=== PATIENT | male | born 1950 | race Caucasian/White ===

== ENCOUNTER 2018-08-21 16:04 | Inpatient (IN) | payer OTHER ==
[~2018-08-21] VITALS: Ht 167.6 cm; Wt 105.3 kg
[~2018-08-21 16:04] MED LIST: ETOMIDATE 20 MG/10 ML ONE; ROCURONIUM 10 MG/ML,10ML ONE
[2018-08-21] MEDS ORDERED: DEXTROSE 50%, 50ML SYRINGE ONE (16:06)
[2018-08-21] MEDS ORDERED: PROPOFOL 100 ML IV PRN ×2 (16:12→20:26)
--- NOTE | 2018-08-21 16:21 | NUR ---
GALDINO MACEDO (SISTER/CAREGIVER) [phone]
[2018-08-21] MEDS ORDERED: PROPOFOL 100 ML IV ONE (16:29)
[2018-08-21] MEDS ORDERED: PIPERACILLIN/TAZO/PMX 4.5GM 100 ML IV ONE (16:30)
[2018-08-21] MEDS ORDERED: ETOMIDATE 20 MG/10 ML IV ONE (16:30)
[2018-08-21 16:43] LABS: BASOPHILS % (AUTO) 0 % (0-1); EOSINOPHILS # (AUTO) 0.02 x10^3/uL (0-0.4); EOSINOPHILS % (AUTO) 0 % (1-7); LYMPHOCYTES # (AUTO) 0.49 x10^3/uL (1-3.4); LYMPHOCYTES % (AUTO) 6 % (22-44); MD NO; MEAN CORPUSCULAR HEMOGLOBIN 31.8 pg (27.5-34.5); MEAN CORPUSCULAR HGB CONC 33.2 g/dL (33.2-36.2); MEAN CORPUSCULAR VOLUME 95.8 fL (81-97); MEAN PLATELET VOLUME 9.6 fL (7.4-10.4); MONOCYTES # (AUTO) 0.29 x10^3/uL (0.2-0.8); MONOCYTES % (AUTO) 3 % (2-9); NEUTROPHILS # (AUTO) 7.85 x10^3/uL (1.8-6.8); NEUTROPHILS % (AUTO) 91 % (42-75); PLATELET COUNT 119 x10^3/uL (130-400); RED BLOOD COUNT 4.88 x10^6/uL (4.38-5.82); RED CELL DISTRIBUTION WIDTH 15.5 % (9.4-14.8)
[2018-08-21 16:54] LABS: INTERNATIONAL NORMALIZED RATIO 1.04 (0.93-1.1)
[2018-08-21 16:55] LABS: ALANINE AMINOTRANSFERASE 33 U/L (12-78); ANION GAP 10 mmol/L (5-15); CALCIUM 7.9 mg/dL (8.5-10.1); CHLORIDE 114 mmol/L (98-107)
[2018-08-21 16:58] LABS: ALKALINE PHOSPHATASE 158 U/L (45-117); BILIRUBIN,TOTAL 0.4 mg/dL (0.2-1.0); CREATINE KINASE, TOTAL 487 U/L (39-308); CREATININE 2.75 mg/dL (0.7-1.3); TOTAL PROTEIN 7.8 g/dL (6.4-8.2); TROPONIN I < 0.015 ng/mL (0.000-0.045)
[2018-08-21 17:00] LABS: MICROSCOPIC AUTO
[2018-08-21] MEDS ORDERED: PLEASE ENTER ALLERGIES MC SCH (17:00)
[2018-08-21] MEDS ORDERED: [UNRECOGNIZED DRUG - REMARK] MC SCH (17:00)
[2018-08-21] MEDS ORDERED: DEXTROSE 50%, 50ML SYRINGE IVPush ONE (17:00)
[2018-08-21] MEDS ORDERED: VANCOMYCIN PER PHARMACY MC PRN ×2 (17:00→18:30)
--- NOTE | 2018-08-21 17:02 | NUR ---
PATIENT ARRIVED TO TRAUMA 54 BAGGED BY EMS. PATIENT WAS EMERGENTLY INTUBATED BY MD DELGADILLO WITH SEBAS AND ETOMIDATE AND 8.0 TUBE WITH RT PRESENT. PATIENT WAS FOUND TO HAVE VOMIT AND MUCOUS IN ORAL AIRWAY. PATIENT BS WAS RECEHCKED AND FOUND TO BE AT 65. 1/2 AMP D50 GIVEN AND RECHECK BS 84. CXR OBTAINED AND MD DELGADILLO REVIOEWED THIS IN ROOM. PATIENT WAS TAKEN TO CT AFTER LABS OBTAINED. UPON RETURNING TO ROOM, NG TUIBE PLACED (THIS WAS NOT PLACED INITIALLY DUE TO COMPLICATIONS PLACING TUBE - MD DELGADILLO AWARE AND HELPED WITH TROUBLE SHOOTING THIS BUT THE PATIENT NEEDED AN IMMEDIATE HEAD CT). PATIENT URINARY CATH PLACED. WARM BLANKETS APPLIED TO PATIENT.
[2018-08-21 17:04] LABS: FREE T4 (FREE THYROXINE) 0.89 ng/dL (0.76-1.46)
[2018-08-21 17:04] LABS: CULTURE INDICATED? YES
[2018-08-21 17:18] LABS: AMPHETAMINE SCREEN, URINE Negative (Negative)
--- NOTE | 2018-08-21 17:20 | NUR ---
PHARM MED REQUEST SENT TO PHARM
[2018-08-21 17:23] LABS: BARBITURATE SCREEN, URINE Negative (Negative); BENZODIAZEPINE SCREEN, URINE Negative (Negative); CANNABINOID SCREEN, URINE Negative (Negative); COCAINE SCREEN, URINE Negative (Negative); METHADONE SCREEN, URINE Negative (Negative); OPIATE SCREEN, URINE Negative (Negative)
[2018-08-21] MEDS ORDERED: ROCURONIUM 10 MG/ML,10ML IVPush ONE (17:30)
--- NOTE | 2018-08-21 17:34 | NUR ---
LAB AT FOR GAS DRAW
--- NOTE | 2018-08-21 17:47 | NUR ---
FSBS 88
--- NOTE | 2018-08-21 17:58 | NUR ---
MD DELGADILLO AT . PLAN TO CONTINUE WARMING PATIENT WITH WARM FLUIDS
--- NOTE | 2018-08-21 18:08 | NUR ---
WARM FLUIDS STARTED PER MD DELGADILLO
--- NOTE | 2018-08-21 18:08 | NUR ---
REPEAT EKG DONE.
[2018-08-21] MEDS ORDERED: D5%-0.45% NACL 1,000 ML IV SCH (18:24)
[2018-08-21] MEDS ORDERED: VANCOMYCIN 2,000 MG in SODIUM CHLORIDE 0.9% 500 ML IV ONE ×2 (18:30→21:30)
[2018-08-21] MEDS ORDERED: DEXTROSE 50%, 50ML SYRINGE IVPush PRN (18:30)
[2018-08-21] MEDS ORDERED: GLUCAGON 1 MG IM PRN (18:30)
[2018-08-21] MEDS ORDERED: NOREPINEPHRINE 4 MG in SODIUM CHLORIDE 0.9% 246 ML IV PRN (18:30)
[2018-08-21] MEDS ORDERED: ACETAMINOPHEN 325 MG TABLET PO PRN (18:30)
[2018-08-21] MEDS ORDERED: DEXTROSE 4 GM TAB.CHEW PO PRN (18:30)
--- NOTE | 2018-08-21 18:40 | NUR ---
MD EAGLE IN TO ASSESS PATIENT. ORDERS PLACE. RECHECK FS 117
--- NOTE | 2018-08-21 18:43 | NUR ---
GALDINO DREW , REPORTS SHE IS SISTER AND ROOMMATE OF PATIENT, CALLED [phone] OR CELL [phone]
[2018-08-21 18:49] VITALS: BP 98/58
[2018-08-21 18:53] LABS: TROPONIN I < 0.015 ng/mL (0.000-0.045)
[2018-08-21] MEDS ORDERED: SODIUM CHLORIDE 0.9% 1,000 ML IV SCH (19:00)
--- NOTE | 2018-08-21 19:18 | NUR ---
report to Iván ATWOOD
[2018-08-21] MEDS: SODIUM CHLORIDE 0.9% 1,000 ML IV SCH (19:43)
[2018-08-21] MEDS ORDERED: PHARMACY MAY ADJ FOR RENAL FX MC SCH (20:30)
[2018-08-21] MEDS ORDERED: LIDOCAINE-MPF 1%, 2ML ENDO PRN (20:30)
[2018-08-21] MEDS ORDERED: ALBUTEROL/IPRATROPIUM 2.5MG/0.5MG, 3 ML INLINE SCH (20:30)
[2018-08-21 21:11] LABS: RAPID INFLUENZA A Negative (Negative); RAPID INFLUENZA B Negative (Negative)
[2018-08-21 21:26] LABS: TROPONIN I < 0.015 ng/mL (0.000-0.045)
[2018-08-21] MEDS: FENTANYL PF 100 MCG/2ML IVPush PRN (21:51)
[2018-08-21] MEDS: PIPERACILLIN/TAZO/PMX 3.375GM 50 ML IV SCH (21:54)
[2018-08-21] MEDS: THIAMINE 200 MG, MVI ADULT 10 ML, FOLIC ACID 1 MG in D5%-0.9% NACL 1,000 ML IV SCH (21:55)
[2018-08-21] MEDS: SODIUM CHLORIDE FLUSH 10ML SYR IVF SCH (21:55)
[2018-08-21] MEDS ORDERED: SODIUM BICARB 8.4%, 50ML SYRINGE IVPush ONE (22:00)
[2018-08-21] MEDS: BUDESONIDE 0.5 MG/2 ML INHA INH SCH (22:40)
[2018-08-21] MEDS: FAMOTIDINE 20 MG/2 ML IVPush SCH (22:46)
[2018-08-21] MEDS: methylPREDNISolone SOD SUCC 125 MG/2 ML IVPush SCH (22:46)
[2018-08-21] MEDS: HEPARIN 5,000 UNITS/ML, 1ML SQ SCH (22:46)
[2018-08-22 00:56] LABS: TROPONIN I < 0.015 ng/mL (0.000-0.045)
[2018-08-22] MEDS: NYSTATIN CRM 15GM TP SCH ×3 (01:05→20:54)
[2018-08-22] MEDS: ALBUTEROL/IPRATROPIUM 2.5MG/0.5MG, 3 ML INLINE SCH ×6 (02:42→23:00)
[2018-08-22 02:53] LABS: BASOPHILS # (AUTO) 0.01 x10^3/uL (0-0.1); BASOPHILS % (AUTO) 0 % (0-1); EOSINOPHILS # (AUTO) 0.01 x10^3/uL (0-0.4); EOSINOPHILS % (AUTO) 0 % (1-7); LYMPHOCYTES # (AUTO) 0.22 x10^3/uL (1-3.4); LYMPHOCYTES % (AUTO) 4 % (22-44); MD SCAN; MEAN CORPUSCULAR HEMOGLOBIN 32.1 pg (27.5-34.5); MEAN CORPUSCULAR HGB CONC 33.6 g/dL (33.2-36.2); MEAN CORPUSCULAR VOLUME 95.6 fL (81-97); MEAN PLATELET VOLUME 9.9 fL (7.4-10.4); MONOCYTES # (AUTO) 0.24 x10^3/uL (0.2-0.8); MONOCYTES % (AUTO) 4 % (2-9); NEUTROPHILS # (AUTO) 5.84 x10^3/uL (1.8-6.8); NEUTROPHILS % (AUTO) 93 % (42-75); PLATELET COUNT 99 x10^3/uL (130-400); RED BLOOD COUNT 3.91 x10^6/uL (4.38-5.82); RED CELL DISTRIBUTION WIDTH 15.9 % (9.4-14.8)
[2018-08-22] MEDS: PIPERACILLIN/TAZO/PMX 3.375GM 50 ML IV SCH ×4 (02:56→20:36)
[2018-08-22] MEDS: methylPREDNISolone SOD SUCC 125 MG/2 ML IVPush SCH ×4 (03:00→20:54)
[2018-08-22 03:02] LABS: ALANINE AMINOTRANSFERASE 26 U/L (12-78); ALBUMIN 2.3 g/dL (3.4-5.0); ANION GAP 10 mmol/L (5-15); CALCIUM 7.3 mg/dL (8.5-10.1); CHLORIDE 119 mmol/L (98-107)
[2018-08-22 03:04] LABS: ALKALINE PHOSPHATASE 102 U/L (45-117); BILIRUBIN,TOTAL 0.5 mg/dL (0.2-1.0); TOTAL PROTEIN 6.2 g/dL (6.4-8.2)
[2018-08-22 03:09] LABS: TROPONIN I < 0.015 ng/mL (0.000-0.045)
[2018-08-22 03:12] LABS: HEMOGLOBIN A1C 10.8 % (4.2-6.3)
[2018-08-22] MEDS: BUDESONIDE 0.5 MG/2 ML INHA INH SCH ×2 (06:35→23:00)
[2018-08-22] MEDS: SODIUM CHLORIDE 0.9% 1,000 ML IV SCH (07:30)
[2018-08-22] MEDS ORDERED: MAGNESIUM SULFATE PMX 4GM/100M 100 ML IVPB ONE (07:30)
[2018-08-22] MEDS: HEPARIN 5,000 UNITS/ML, 1ML SQ SCH ×2 (08:19→14:56)
[2018-08-22] MEDS: FAMOTIDINE 20 MG/2 ML IVPush SCH ×2 (08:19→20:54)
[2018-08-22] MEDS: SODIUM CHLORIDE FLUSH 10ML SYR IVF SCH ×2 (08:19→20:36)
[2018-08-22] MEDS ORDERED: SODIUM CHLORIDE 0.9% 1,000ML IVBOLUS ONE (09:00)
[2018-08-22] MEDS ORDERED: SODIUM BICARBONATE 8.4% 150 MEQ in DEXTROSE 5% 1,000 ML IV SCH (09:00)
[2018-08-22] MEDS ORDERED: LABETALOL 5MG/ML, 20ML IVPush PRN (15:30)
[2018-08-22] MEDS: LABETALOL 20 MG/4 ML IVPush PRN ×2 (15:45→23:28)
[2018-08-22] MEDS: INSULIN LISPRO 100 UNITS/ML, PEN SQ-INSULIN SCH ×2 (16:41→20:49)
[2018-08-22] MEDS ORDERED: PREG50CA PO (17:30)
[2018-08-22] MEDS ORDERED: INSU100V8 SQ (17:30)
[2018-08-22] MEDS ORDERED: INSU100I18 SC (17:30)
[2018-08-22] MEDS ORDERED: DULO20CA17 PO (17:30)
[2018-08-22] MEDS ORDERED: LOSA100T7 PO (17:30)
[2018-08-22] MEDS ORDERED: NIFE60TA15 PO (17:30)
[2018-08-22] MEDS ORDERED: TRAM50TA2 PO (17:30)
[2018-08-22] MEDS ORDERED: CHOL-1 PO (17:30)
[2018-08-22] MEDS ORDERED: DORZ10DR27 OP (17:30)
[2018-08-22] MEDS ORDERED: ROSU20TA28 PO (17:30)
[2018-08-22] MEDS: SODIUM BICARBONATE 8.4% 150 MEQ in DEXTROSE 5% 1,000 ML IV SCH (20:35)
[2018-08-22] MEDS: FENTANYL PF 100 MCG/2ML IVPush PRN (20:59)
[2018-08-22] MEDS: THIAMINE 200 MG, MVI ADULT 10 ML, FOLIC ACID 1 MG in D5%-0.9% NACL 1,000 ML IV SCH (21:09)
[2018-08-23] MEDS: HEPARIN 5,000 UNITS/ML, 1ML SQ SCH ×3 (00:17→15:50)
[2018-08-23] MEDS: FENTANYL PF 100 MCG/2ML IVPush PRN (00:33)
[2018-08-23] MEDS: PROPOFOL 100 ML IV PRN ×5 (02:00→20:33)
[2018-08-23] MEDS: ALBUTEROL/IPRATROPIUM 2.5MG/0.5MG, 3 ML INLINE SCH ×6 (02:32→22:33)
[2018-08-23] MEDS: PIPERACILLIN/TAZO/PMX 3.375GM 50 ML IV SCH ×2 (02:51→08:56)
[2018-08-23] MEDS: hydrALAzine 20 MG/ML, 1ML IV PRN ×3 (02:52→20:11)
[2018-08-23] MEDS: methylPREDNISolone SOD SUCC 125 MG/2 ML IVPush SCH ×4 (02:52→20:33)
[2018-08-23 04:30] LABS: MEAN CORPUSCULAR VOLUME 94.3 fL (81-97); RED BLOOD COUNT 3.62 x10^6/uL (4.38-5.82); RED CELL DISTRIBUTION WIDTH 15.5 % (9.4-14.8)
[2018-08-23 04:40] LABS: ALANINE AMINOTRANSFERASE 20 U/L (12-78); ALBUMIN 2.3 g/dL (3.4-5.0); ANION GAP 10 mmol/L (5-15); CALCIUM 7.7 mg/dL (8.5-10.1); CHLORIDE 114 mmol/L (98-107)
[2018-08-23 04:42] LABS: ALKALINE PHOSPHATASE 78 U/L (45-117); BILIRUBIN,TOTAL 0.5 mg/dL (0.2-1.0); MD YES; TOTAL PROTEIN 6.5 g/dL (6.4-8.2)
[2018-08-23 04:43] LABS: MEAN PLATELET VOLUME 10.2 fL (7.4-10.4); PLATELET COUNT 97 x10^3/uL (130-400)
[2018-08-23 04:44] LABS: BAND#(MANUAL) 1.28 x10^3/uL; BANDS%(MANUAL) 16 % (0-7); LYMPH#(MANUAL) 0.48 x10^3/uL (1-3.4); LYMPHS% (MANUAL) 6 % (22-44); MONOS#(MANUAL) 0.32 x10^3/uL (0.3-2.7); MONOS% (MANUAL) 4 % (2-9); SEG#(MANUAL) 5.92 x10^3/uL (1.8-6.8); SEGS% (MANUAL) 74 % (42-75)
[2018-08-23 04:49] LABS: <PLATELET ESTIMATE> DECREASED; <PLT MORPHOLOGY> NORMAL PLT MORPH; ANISOCYTOSIS 1+
[2018-08-23] MEDS: INSULIN GLARGINE 100 UNITS/ML, PEN SQ-INSULIN SCH ×2 (05:25→18:43)
[2018-08-23] MEDS: FAMOTIDINE 20 MG/2 ML IVPush SCH (08:15)
[2018-08-23] MEDS: SODIUM CHLORIDE FLUSH 10ML SYR IVF SCH ×2 (08:18→20:16)
[2018-08-23] MEDS: AMLODIPINE 5 MG TABLET PO SCH (08:56)
[2018-08-23] MEDS: NYSTATIN CRM 15GM TP SCH ×2 (08:59→20:16)
[2018-08-23] MEDS ORDERED: MEROPENEM 1 GM in SODIUM CHLORIDE 0.9% 100 ML IV SCH ×2 (09:00→22:00)
[2018-08-23] MEDS ORDERED: AMLODIPINE 5 MG TABLET PO SCH (09:00)
[2018-08-23] MEDS: INSULIN LISPRO 100 UNITS/ML, PEN SQ-INSULIN SCH ×4 (09:05→20:14)
[2018-08-23] MEDS: BUDESONIDE 0.5 MG/2 ML INHA INH SCH ×2 (09:15→22:33)
--- NOTE | 2018-08-23 10:45 | NUR ---
TF GOAL: w/ propofol: VITAL HIGH PROTEIN @ 55ML/HR off propofol: VITAL HIGH PROTEIN @ 65ML/HR
[2018-08-23] MEDS: SODIUM BICARBONATE 8.4% 150 MEQ in DEXTROSE 5% 1,000 ML IV SCH (11:09)
[2018-08-23] MEDS: THIAMINE 200 MG, MVI ADULT 10 ML, FOLIC ACID 1 MG in D5%-0.9% NACL 1,000 ML IV SCH (20:33)
[2018-08-23 23:54] LABS: ANION GAP 11 mmol/L (5-15); CALCIUM 8.1 mg/dL (8.5-10.1); CHLORIDE 114 mmol/L (98-107); CREATININE 3.35 mg/dL (0.7-1.3)
[2018-08-24] MEDS: HEPARIN 5,000 UNITS/ML, 1ML SQ SCH ×3 (00:15→16:32)
[2018-08-24] MEDS: ALBUTEROL/IPRATROPIUM 2.5MG/0.5MG, 3 ML INLINE SCH ×6 (02:33→22:04)
[2018-08-24] MEDS: methylPREDNISolone SOD SUCC 125 MG/2 ML IVPush SCH ×4 (03:08→20:05)
[2018-08-24] MEDS: PROPOFOL 100 ML IV PRN (04:17)
[2018-08-24 04:51] LABS: ALANINE AMINOTRANSFERASE 20 U/L (12-78); ALBUMIN 2.3 g/dL (3.4-5.0); ANION GAP 8 mmol/L (5-15); CHLORIDE 113 mmol/L (98-107); CREATININE 3.37 mg/dL (0.7-1.3); TRIGLYCERIDES 210 mg/dL (50-200)
[2018-08-24 04:53] LABS: ALKALINE PHOSPHATASE 79 U/L (45-117); BILIRUBIN,TOTAL 0.8 mg/dL (0.2-1.0); TOTAL PROTEIN 6.4 g/dL (6.4-8.2)
[2018-08-24 05:10] LABS: CREATININE,URINE RANDOM 22.9 mg/dL
[2018-08-24 05:37] LABS: MEAN CORPUSCULAR HGB CONC 33.6 g/dL (33.2-36.2); MEAN PLATELET VOLUME 9.5 fL (7.4-10.4); PLATELET COUNT 95 x10^3/uL (130-400); RED BLOOD COUNT 3.86 x10^6/uL (4.38-5.82); RED CELL DISTRIBUTION WIDTH 15.7 % (9.4-14.8)
[2018-08-24 05:58] LABS: MD YES
[2018-08-24 06:01] LABS: <PLATELET ESTIMATE> DECREASED; <PLT MORPHOLOGY> NORMAL PLT MORPH; ANISOCYTOSIS 1+; BAND#(MANUAL) 1.39 x10^3/uL; BANDS%(MANUAL) 16 % (0-7); LYMPH#(MANUAL) 0.44 x10^3/uL (1-3.4); LYMPHS% (MANUAL) 5 % (22-44); MONOS#(MANUAL) 0.17 x10^3/uL (0.3-2.7); MONOS% (MANUAL) 2 % (2-9); SEGS% (MANUAL) 77 % (42-75)
[2018-08-24] MEDS: INSULIN GLARGINE 100 UNITS/ML, PEN SQ-INSULIN SCH ×2 (06:10→17:22)
[2018-08-24] MEDS ORDERED: FAMOTIDINE 20 MG/2 ML IVPush SCH (09:00)
[2018-08-24] MEDS: BUDESONIDE 0.5 MG/2 ML INHA INH SCH ×2 (09:06→18:37)
[2018-08-24] MEDS: AMLODIPINE 5 MG TABLET PO SCH (10:40)
[2018-08-24] MEDS: SODIUM CHLORIDE FLUSH 10ML SYR IVF SCH ×2 (10:41→20:06)
[2018-08-24] MEDS: ERTAPENEM 0.5 GM in SODIUM CHLORIDE 0.9% 50 ML IV SCH (10:41)
[2018-08-24] MEDS: NYSTATIN CRM 15GM TP SCH ×2 (10:41→20:06)
[2018-08-24] MEDS: hydrALAzine 20 MG/ML, 1ML IV PRN (11:35)
[2018-08-24] MEDS: INSULIN LISPRO 100 UNITS/ML, PEN SQ-INSULIN SCH ×4 (12:35→20:06)
[2018-08-25] MEDS: HEPARIN 5,000 UNITS/ML, 1ML SQ SCH ×3 (00:07→16:45)
[2018-08-25] MEDS: hydrALAzine 20 MG/ML, 1ML IV PRN (00:43)
[2018-08-25] MEDS: ALBUTEROL/IPRATROPIUM 2.5MG/0.5MG, 3 ML INLINE SCH ×6 (02:18→22:15)
[2018-08-25] MEDS: methylPREDNISolone SOD SUCC 125 MG/2 ML IVPush SCH ×2 (02:53→10:23)
[2018-08-25 04:33] LABS: BASOPHILS # (AUTO) 0.04 x10^3/uL (0-0.1); BASOPHILS % (AUTO) 1 % (0-1); EOSINOPHILS # (AUTO) 0.08 x10^3/uL (0-0.4); EOSINOPHILS % (AUTO) 1 % (1-7); LYMPHOCYTES # (AUTO) 0.37 x10^3/uL (1-3.4); LYMPHOCYTES % (AUTO) 4 % (22-44); MD NO; MEAN CORPUSCULAR HEMOGLOBIN 31.9 pg (27.5-34.5); MEAN CORPUSCULAR HGB CONC 33.9 g/dL (33.2-36.2); MEAN CORPUSCULAR VOLUME 94.3 fL (81-97); MEAN PLATELET VOLUME 9.6 fL (7.4-10.4); MONOCYTES # (AUTO) 0.29 x10^3/uL (0.2-0.8); MONOCYTES % (AUTO) 3 % (2-9); NEUTROPHILS # (AUTO) 7.98 x10^3/uL (1.8-6.8); NEUTROPHILS % (AUTO) 91 % (42-75); PLATELET COUNT 105 x10^3/uL (130-400); RED BLOOD COUNT 3.93 x10^6/uL (4.38-5.82); RED CELL DISTRIBUTION WIDTH 16.1 % (9.4-14.8)
[2018-08-25] MEDS: INSULIN GLARGINE 100 UNITS/ML, PEN SQ-INSULIN SCH ×2 (04:50→17:50)
[2018-08-25] MEDS: BUDESONIDE 0.5 MG/2 ML INHA INH SCH ×2 (07:11→22:15)
[2018-08-25 08:02] LABS: ANION GAP 11 mmol/L (5-15); CALCIUM 7.7 mg/dL (8.5-10.1); CHLORIDE 115 mmol/L (98-107); CREATININE 3.79 mg/dL (0.7-1.3)
[2018-08-25] MEDS: INSULIN LISPRO 100 UNITS/ML, PEN SQ-INSULIN SCH ×4 (08:11→21:15)
[2018-08-25] MEDS: ERTAPENEM 0.5 GM in SODIUM CHLORIDE 0.9% 50 ML IV SCH (09:57)
[2018-08-25] MEDS: AMLODIPINE 5 MG TABLET PO SCH (10:23)
[2018-08-25] MEDS: PANTOPRAZOLE 40 MG IV IVPush SCH (10:23)
[2018-08-25] MEDS: SODIUM CHLORIDE FLUSH 10ML SYR IVF SCH ×2 (10:24→21:14)
[2018-08-25] MEDS: NYSTATIN CRM 15GM TP SCH ×2 (11:17→21:16)
[2018-08-25] MEDS: SODIUM CHLORIDE 0.9% 1,000 ML IV SCH (11:17)
[2018-08-25] MEDS ORDERED: ERTAPENEM 0.5 GM in SODIUM CHLORIDE 0.9% 50 ML IV SCH (13:30)
[2018-08-25] MEDS: methylPREDNISolone SOD SUCC 40 MG/ML IVPush SCH (16:45)
[2018-08-26] MEDS: HEPARIN 5,000 UNITS/ML, 1ML SQ SCH ×3 (00:38→16:23)
[2018-08-26] MEDS: methylPREDNISolone SOD SUCC 40 MG/ML IVPush SCH ×2 (00:38→09:25)
[2018-08-26] MEDS: SODIUM CHLORIDE 0.9% 1,000 ML IV SCH (02:04)
[2018-08-26] MEDS: ALBUTEROL/IPRATROPIUM 2.5MG/0.5MG, 3 ML INLINE SCH ×6 (02:40→22:36)
[2018-08-26 04:42] LABS: MEAN CORPUSCULAR HEMOGLOBIN 31.5 pg (27.5-34.5); MEAN CORPUSCULAR HGB CONC 33.2 g/dL (33.2-36.2); MEAN CORPUSCULAR VOLUME 95.1 fL (81-97); MEAN PLATELET VOLUME 9.7 fL (7.4-10.4); PLATELET COUNT 98 x10^3/uL (130-400); RED BLOOD COUNT 3.97 x10^6/uL (4.38-5.82); RED CELL DISTRIBUTION WIDTH 15.7 % (9.4-14.8)
[2018-08-26 05:15] LABS: BASOPHILS # (AUTO) 0.01 x10^3/uL (0-0.1); BASOPHILS % (AUTO) 0 % (0-1); EOSINOPHILS % (AUTO) 0 % (1-7); LYMPHOCYTES # (AUTO) 0.35 x10^3/uL (1-3.4); LYMPHOCYTES % (AUTO) 5 % (22-44); MD SCAN; MONOCYTES % (AUTO) 6 % (2-9); NEUTROPHILS # (AUTO) 5.66 x10^3/uL (1.8-6.8); NEUTROPHILS % (AUTO) 88 % (42-75)
[2018-08-26] MEDS: INSULIN GLARGINE 100 UNITS/ML, PEN SQ-INSULIN SCH ×2 (05:21→17:46)
[2018-08-26 05:36] LABS: CHLORIDE 120 mmol/L (98-107)
[2018-08-26 05:37] LABS: ANION GAP 10 mmol/L (5-15); CALCIUM 7.8 mg/dL (8.5-10.1); CREATININE 3.77 mg/dL (0.7-1.3)
[2018-08-26] MEDS: hydrALAzine 20 MG/ML, 1ML IV PRN (06:11)
[2018-08-26] MEDS: BUDESONIDE 0.5 MG/2 ML INHA INH SCH ×2 (06:59→19:00)
[2018-08-26] MEDS: INSULIN LISPRO 100 UNITS/ML, PEN SQ-INSULIN SCH ×4 (09:24→22:10)
[2018-08-26] MEDS: PANTOPRAZOLE 40 MG IV IVPush SCH (09:25)
[2018-08-26] MEDS: AMLODIPINE 5 MG TABLET PO SCH (09:26)
[2018-08-26] MEDS: NYSTATIN CRM 15GM TP SCH ×2 (09:27→22:02)
[2018-08-26] MEDS: SODIUM CHLORIDE FLUSH 10ML SYR IVF SCH ×2 (09:37→21:00)
[2018-08-26] MEDS: SODIUM CHLORIDE 0.45% 1,000 ML IV SCH ×2 (09:37→22:02)
[2018-08-26] MEDS: CARVEDILOL 3.125 MG TABLET PO SCH ×2 (09:37→17:47)
[2018-08-26] MEDS: LEVETIRACETAM 1,000 MG in SODIUM CHLORIDE 0.9% 100 ML IV SCH ×2 (12:08→22:07)
[2018-08-26] MEDS: ERTAPENEM 0.5 GM in SODIUM CHLORIDE 0.9% 50 ML IV SCH (13:48)
[2018-08-26] MEDS ORDERED: methylPREDNISolone SOD SUCC 40 MG/ML IVPush SCH (21:00)
[2018-08-27] MEDS: HEPARIN 5,000 UNITS/ML, 1ML SQ SCH ×4 (01:39→23:38)
[2018-08-27] MEDS: ALBUTEROL/IPRATROPIUM 2.5MG/0.5MG, 3 ML INLINE SCH ×6 (02:30→22:03)
[2018-08-27 04:52] LABS: BASOPHILS # (AUTO) 0.03 x10^3/uL (0-0.1); BASOPHILS % (AUTO) 0 % (0-1); EOSINOPHILS % (AUTO) 0 % (1-7); LYMPHOCYTES # (AUTO) 0.59 x10^3/uL (1-3.4); LYMPHOCYTES % (AUTO) 7 % (22-44); MD NO; MEAN CORPUSCULAR HEMOGLOBIN 31.1 pg (27.5-34.5); MEAN CORPUSCULAR HGB CONC 32.4 g/dL (33.2-36.2); MEAN CORPUSCULAR VOLUME 95.8 fL (81-97); MEAN PLATELET VOLUME 9.8 fL (7.4-10.4); MONOCYTES # (AUTO) 0.36 x10^3/uL (0.2-0.8); MONOCYTES % (AUTO) 5 % (2-9); NEUTROPHILS # (AUTO) 7.02 x10^3/uL (1.8-6.8); NEUTROPHILS % (AUTO) 88 % (42-75); PLATELET COUNT 102 x10^3/uL (130-400); RED BLOOD COUNT 3.96 x10^6/uL (4.38-5.82); RED CELL DISTRIBUTION WIDTH 15.7 % (9.4-14.8)
[2018-08-27 04:58] LABS: ANION GAP 10 mmol/L (5-15); CALCIUM 7.6 mg/dL (8.5-10.1); CHLORIDE 120 mmol/L (98-107)
[2018-08-27] MEDS: CARVEDILOL 3.125 MG TABLET PO SCH ×2 (05:25→16:51)
[2018-08-27] MEDS: INSULIN GLARGINE 100 UNITS/ML, PEN SQ-INSULIN SCH ×2 (05:26→16:50)
[2018-08-27] MEDS: INSULIN LISPRO 100 UNITS/ML, PEN SQ-INSULIN SCH ×3 (08:08→21:33)
[2018-08-27] MEDS: SODIUM CHLORIDE FLUSH 10ML SYR IVF SCH ×2 (09:26→21:31)
[2018-08-27] MEDS: AMLODIPINE 5 MG TABLET PO SCH (09:26)
[2018-08-27] MEDS: PANTOPRAZOLE 40 MG IV IVPush SCH (09:26)
[2018-08-27] MEDS: NYSTATIN CRM 15GM TP SCH ×2 (09:26→21:31)
[2018-08-27] MEDS: SODIUM CHLORIDE 0.45% 1,000 ML IV SCH ×2 (09:27→16:50)
[2018-08-27] MEDS: BUDESONIDE 0.5 MG/2 ML INHA INH SCH ×2 (10:58→18:37)
[2018-08-27] MEDS: LEVETIRACETAM 1,000 MG in SODIUM CHLORIDE 0.9% 100 ML IV SCH ×2 (11:24→22:45)
[2018-08-27] MEDS: ERTAPENEM 0.5 GM in SODIUM CHLORIDE 0.9% 50 ML IV SCH (13:26)
[2018-08-28] MEDS: SODIUM CHLORIDE 0.45% 1,000 ML IV SCH ×3 (00:43→16:30)
[2018-08-28] MEDS: ALBUTEROL/IPRATROPIUM 2.5MG/0.5MG, 3 ML INLINE SCH ×6 (02:19→22:24)
[2018-08-28 04:59] LABS: MEAN CORPUSCULAR HEMOGLOBIN 31.2 pg (27.5-34.5); MEAN CORPUSCULAR HGB CONC 32.8 g/dL (33.2-36.2); MEAN CORPUSCULAR VOLUME 95.1 fL (81-97); MEAN PLATELET VOLUME 10.8 fL (7.4-10.4); PLATELET COUNT 99 x10^3/uL (130-400); RED BLOOD COUNT 3.83 x10^6/uL (4.38-5.82); RED CELL DISTRIBUTION WIDTH 15.6 % (9.4-14.8)
[2018-08-28] MEDS: INSULIN GLARGINE 100 UNITS/ML, PEN SQ-INSULIN SCH ×2 (05:00→17:43)
[2018-08-28 05:06] LABS: CHLORIDE 118 mmol/L (98-107)
[2018-08-28 05:12] LABS: ANION GAP 9 mmol/L (5-15); CALCIUM 7.4 mg/dL (8.5-10.1); CREATININE 3.76 mg/dL (0.7-1.3)
[2018-08-28 05:45] LABS: BASOPHILS # (AUTO) 0.02 x10^3/uL (0-0.1); BASOPHILS % (AUTO) 0 % (0-1); EOSINOPHILS # (AUTO) 0.07 x10^3/uL (0-0.4); EOSINOPHILS % (AUTO) 1 % (1-7); LYMPHOCYTES # (AUTO) 0.99 x10^3/uL (1-3.4); LYMPHOCYTES % (AUTO) 14 % (22-44); MD SCAN; MONOCYTES # (AUTO) 0.53 x10^3/uL (0.2-0.8); MONOCYTES % (AUTO) 8 % (2-9); NEUTROPHILS % (AUTO) 77 % (42-75)
[2018-08-28] MEDS: CARVEDILOL 3.125 MG TABLET PO SCH (06:35)
[2018-08-28] MEDS: INSULIN LISPRO 100 UNITS/ML, PEN SQ-INSULIN SCH ×4 (06:37→20:51)
[2018-08-28] MEDS: BUDESONIDE 0.5 MG/2 ML INHA INH SCH ×2 (07:00→22:24)
[2018-08-28] MEDS: HEPARIN 5,000 UNITS/ML, 1ML SQ SCH ×2 (08:45→16:10)
[2018-08-28] MEDS: PANTOPRAZOLE 40 MG IV IVPush SCH (08:45)
[2018-08-28] MEDS: AMLODIPINE 5 MG TABLET PO SCH (08:45)
[2018-08-28] MEDS: SODIUM CHLORIDE FLUSH 10ML SYR IVF SCH ×2 (08:46→20:51)
[2018-08-28] MEDS: NYSTATIN CRM 15GM TP SCH ×2 (08:46→20:52)
[2018-08-28] MEDS: LEVETIRACETAM 1,000 MG in SODIUM CHLORIDE 0.9% 100 ML IV SCH ×2 (11:20→22:56)
[2018-08-28] MEDS: ERTAPENEM 0.5 GM in SODIUM CHLORIDE 0.9% 50 ML IV SCH (13:30)
[2018-08-28] MEDS: CARVEDILOL 6.25 MG TABLET PO SCH (18:29)
[2018-08-28] MEDS ORDERED: SODIUM CHLORIDE 0.45% 1,000 ML IV SCH (23:00)
[2018-08-29] MEDS: HEPARIN 5,000 UNITS/ML, 1ML SQ SCH ×3 (00:56→17:24)
[2018-08-29] MEDS: ALBUTEROL/IPRATROPIUM 2.5MG/0.5MG, 3 ML INLINE SCH ×6 (02:43→22:57)
[2018-08-29] MEDS: INSULIN GLARGINE 100 UNITS/ML, PEN SQ-INSULIN SCH ×2 (05:04→17:28)
[2018-08-29 05:08] LABS: ANION GAP 7 mmol/L (5-15); CALCIUM 7.3 mg/dL (8.5-10.1); CHLORIDE 121 mmol/L (98-107); CREATININE 3.35 mg/dL (0.7-1.3)
[2018-08-29 05:10] LABS: MEAN CORPUSCULAR HEMOGLOBIN 32.4 pg (27.5-34.5); MEAN CORPUSCULAR VOLUME 95.1 fL (81-97); RED BLOOD COUNT 3.54 x10^6/uL (4.38-5.82); RED CELL DISTRIBUTION WIDTH 15.3 % (9.4-14.8)
[2018-08-29 05:52] LABS: BASOPHILS # (AUTO) 0.02 x10^3/uL (0-0.1); BASOPHILS % (AUTO) 0 % (0-1); EOSINOPHILS # (AUTO) 0.19 x10^3/uL (0-0.4); EOSINOPHILS % (AUTO) 3 % (1-7); LYMPHOCYTES # (AUTO) 1.07 x10^3/uL (1-3.4); LYMPHOCYTES % (AUTO) 17 % (22-44); MD SCAN; MEAN PLATELET VOLUME 10.1 fL (7.4-10.4); MONOCYTES # (AUTO) 0.43 x10^3/uL (0.2-0.8); MONOCYTES % (AUTO) 7 % (2-9); NEUTROPHILS # (AUTO) 4.59 x10^3/uL (1.8-6.8); NEUTROPHILS % (AUTO) 73 % (42-75); PLATELET COUNT 62 x10^3/uL (130-400)
[2018-08-29] MEDS: CARVEDILOL 6.25 MG TABLET PO SCH ×2 (06:14→17:24)
[2018-08-29] MEDS: INSULIN LISPRO 100 UNITS/ML, PEN SQ-INSULIN SCH ×4 (06:15→23:00)
[2018-08-29] MEDS: BUDESONIDE 0.5 MG/2 ML INHA INH SCH ×2 (06:45→21:00)
[2018-08-29] MEDS ORDERED: SODIUM CHLORIDE 0.45% 1,000 ML IV SCH (08:30)
--- NOTE | 2018-08-29 10:03 | NUR ---
08/29 TF GOAL: PROMOTE with FIBER @ 75ML/HR
[2018-08-29] MEDS: LEVETIRACETAM 1,000 MG in SODIUM CHLORIDE 0.9% 100 ML IV SCH ×2 (10:34→23:47)
[2018-08-29] MEDS: SODIUM CHLORIDE FLUSH 10ML SYR IVF SCH ×2 (10:35→21:14)
[2018-08-29] MEDS: PANTOPRAZOLE 40 MG IV IVPush SCH (10:35)
[2018-08-29] MEDS: AMLODIPINE 5 MG TABLET PO SCH (10:35)
[2018-08-29] MEDS: NYSTATIN CRM 15GM TP SCH ×2 (10:36→21:14)
[2018-08-29 11:20] LABS: HIT RESULT NEGATIVE (NEGATIVE)
[2018-08-30] MEDS: HEPARIN 5,000 UNITS/ML, 1ML SQ SCH ×3 (01:05→17:22)
[2018-08-30] MEDS: ALBUTEROL/IPRATROPIUM 2.5MG/0.5MG, 3 ML INLINE SCH ×6 (03:00→22:30)
[2018-08-30] MEDS: INSULIN GLARGINE 100 UNITS/ML, PEN SQ-INSULIN SCH ×2 (05:35→17:27)
[2018-08-30] MEDS: INSULIN LISPRO 100 UNITS/ML, PEN SQ-INSULIN SCH ×4 (05:35→22:32)
[2018-08-30 05:36] LABS: MEAN CORPUSCULAR HGB CONC 33.4 g/dL (33.2-36.2); MEAN CORPUSCULAR VOLUME 95.6 fL (81-97); MEAN PLATELET VOLUME 11.8 fL (7.4-10.4); PLATELET COUNT 70 x10^3/uL (130-400); RED BLOOD COUNT 3.46 x10^6/uL (4.38-5.82); RED CELL DISTRIBUTION WIDTH 15.6 % (9.4-14.8)
[2018-08-30] MEDS: CARVEDILOL 6.25 MG TABLET PO SCH ×2 (05:36→17:22)
[2018-08-30 05:52] LABS: BASOPHILS # (AUTO) 0.03 x10^3/uL (0-0.1); BASOPHILS % (AUTO) 0 % (0-1); EOSINOPHILS # (AUTO) 0.23 x10^3/uL (0-0.4); EOSINOPHILS % (AUTO) 3 % (1-7); LYMPHOCYTES # (AUTO) 1.37 x10^3/uL (1-3.4); LYMPHOCYTES % (AUTO) 18 % (22-44); MD SCAN; MONOCYTES # (AUTO) 0.43 x10^3/uL (0.2-0.8); MONOCYTES % (AUTO) 6 % (2-9); NEUTROPHILS # (AUTO) 5.58 x10^3/uL (1.8-6.8); NEUTROPHILS % (AUTO) 73 % (42-75)
[2018-08-30 06:27] LABS: ANION GAP 8 mmol/L (5-15); CALCIUM 7.3 mg/dL (8.5-10.1); CHLORIDE 120 mmol/L (98-107); CREATININE 3.43 mg/dL (0.7-1.3)
[2018-08-30] MEDS: BUDESONIDE 0.5 MG/2 ML INHA INH SCH ×2 (07:15→19:00)
[2018-08-30] MEDS: SODIUM CHLORIDE FLUSH 10ML SYR IVF SCH ×2 (09:59→22:31)
[2018-08-30] MEDS: PANTOPRAZOLE 40 MG IV IVPush SCH (09:59)
[2018-08-30] MEDS: AMLODIPINE 5 MG TABLET PO SCH (09:59)
[2018-08-30] MEDS: NYSTATIN CRM 15GM TP SCH ×2 (10:00→22:34)
[2018-08-30] MEDS: LEVETIRACETAM 1,000 MG in SODIUM CHLORIDE 0.9% 100 ML IV SCH ×2 (11:09→22:33)
[2018-08-31] MEDS: HEPARIN 5,000 UNITS/ML, 1ML SQ SCH ×3 (01:39→16:17)
[2018-08-31] MEDS: ALBUTEROL/IPRATROPIUM 2.5MG/0.5MG, 3 ML INLINE SCH ×6 (02:20→23:00)
[2018-08-31] MEDS: INSULIN LISPRO 100 UNITS/ML, PEN SQ-INSULIN SCH ×4 (03:54→23:19)
[2018-08-31] MEDS: INSULIN GLARGINE 100 UNITS/ML, PEN SQ-INSULIN SCH ×2 (03:54→18:05)
[2018-08-31 04:14] LABS: MEAN CORPUSCULAR HEMOGLOBIN 30.7 pg (27.5-34.5); MEAN CORPUSCULAR HGB CONC 32.2 g/dL (33.2-36.2); MEAN CORPUSCULAR VOLUME 95.3 fL (81-97); MEAN PLATELET VOLUME 12.2 fL (7.4-10.4); PLATELET COUNT 78 x10^3/uL (130-400); RED BLOOD COUNT 3.38 x10^6/uL (4.38-5.82); RED CELL DISTRIBUTION WIDTH 15.1 % (9.4-14.8)
[2018-08-31 04:22] LABS: ANION GAP 9 mmol/L (5-15); CALCIUM 7.6 mg/dL (8.5-10.1); CHLORIDE 121 mmol/L (98-107); CREATININE 3.37 mg/dL (0.7-1.3)
[2018-08-31 04:51] LABS: BASOPHILS # (AUTO) 0.02 x10^3/uL (0-0.1); BASOPHILS % (AUTO) 0 % (0-1); EOSINOPHILS % (AUTO) 2 % (1-7); LYMPHOCYTES # (AUTO) 1.14 x10^3/uL (1-3.4); LYMPHOCYTES % (AUTO) 13 % (22-44); MD SCAN; MONOCYTES # (AUTO) 0.61 x10^3/uL (0.2-0.8); MONOCYTES % (AUTO) 7 % (2-9); NEUTROPHILS # (AUTO) 6.55 x10^3/uL (1.8-6.8); NEUTROPHILS % (AUTO) 77 % (42-75)
[2018-08-31] MEDS ORDERED: MIDAZOLAM 1 MG/ML, 2ML ONE (04:55)
[2018-08-31] MEDS: CARVEDILOL 6.25 MG TABLET PO SCH ×2 (06:26→18:05)
[2018-08-31] MEDS: BUDESONIDE 0.5 MG/2 ML INHA INH SCH ×2 (07:32→21:00)
[2018-08-31] MEDS: SODIUM CHLORIDE FLUSH 10ML SYR IVF SCH ×2 (08:52→20:39)
[2018-08-31] MEDS: PANTOPRAZOLE 40 MG IV IVPush SCH (08:52)
[2018-08-31] MEDS: NYSTATIN CRM 15GM TP SCH ×2 (08:54→20:39)
[2018-08-31] MEDS: AMLODIPINE 5 MG TABLET PO SCH (09:01)
[2018-08-31] MEDS ORDERED: ALBUMIN HUMAN 25% 100 ML IV ONE (09:30)
[2018-08-31] MEDS ORDERED: FUROSEMIDE 40 MG/4 ML IV ONE (10:00)
[2018-08-31] MEDS: SILVER SULF. CRM 1% , 25GM TP SCH ×2 (11:25→20:39)
[2018-08-31] MEDS: LEVETIRACETAM 1,000 MG in SODIUM CHLORIDE 0.9% 100 ML IV SCH (12:25)
[2018-09-01] MEDS: FENTANYL PF 100 MCG/2ML IVPush PRN ×4 (00:10→08:57)
[2018-09-01] MEDS: LEVETIRACETAM 1,000 MG in SODIUM CHLORIDE 0.9% 100 ML IV SCH ×2 (00:10→12:35)
[2018-09-01] MEDS: HEPARIN 5,000 UNITS/ML, 1ML SQ SCH ×2 (00:58→08:56)
[2018-09-01] MEDS: ALBUTEROL/IPRATROPIUM 2.5MG/0.5MG, 3 ML INLINE SCH ×3 (03:00→09:57)
[2018-09-01] MEDS: INSULIN LISPRO 100 UNITS/ML, PEN SQ-INSULIN SCH ×2 (04:28→11:00)
[2018-09-01] MEDS: INSULIN GLARGINE 100 UNITS/ML, PEN SQ-INSULIN SCH (04:28)
[2018-09-01 04:43] LABS: MEAN CORPUSCULAR HEMOGLOBIN 31.8 pg (27.5-34.5); MEAN CORPUSCULAR HGB CONC 33.5 g/dL (33.2-36.2); MEAN CORPUSCULAR VOLUME 94.9 fL (81-97); MEAN PLATELET VOLUME 12.3 fL (7.4-10.4); PLATELET COUNT 74 x10^3/uL (130-400); RED BLOOD COUNT 3.13 x10^6/uL (4.38-5.82); RED CELL DISTRIBUTION WIDTH 15.1 % (9.4-14.8)
[2018-09-01 04:52] LABS: ANION GAP 9 mmol/L (5-15); CALCIUM 7.8 mg/dL (8.5-10.1); CHLORIDE 117 mmol/L (98-107)
[2018-09-01 04:54] LABS: CREATININE 3.38 mg/dL (0.7-1.3)
[2018-09-01] MEDS: CARVEDILOL 6.25 MG TABLET PO SCH (05:22)
[2018-09-01 05:42] LABS: BASOPHILS # (AUTO) 0.03 x10^3/uL (0-0.1); BASOPHILS % (AUTO) 0 % (0-1); EOSINOPHILS # (AUTO) 0.21 x10^3/uL (0-0.4); EOSINOPHILS % (AUTO) 3 % (1-7); LYMPHOCYTES % (AUTO) 13 % (22-44); MD SCAN; MONOCYTES # (AUTO) 0.72 x10^3/uL (0.2-0.8); MONOCYTES % (AUTO) 8 % (2-9); NEUTROPHILS # (AUTO) 6.57 x10^3/uL (1.8-6.8); NEUTROPHILS % (AUTO) 76 % (42-75)
[2018-09-01] MEDS: AMLODIPINE 5 MG TABLET PO SCH (08:57)
[2018-09-01] MEDS: SODIUM CHLORIDE FLUSH 10ML SYR IVF SCH (08:57)
[2018-09-01] MEDS: PANTOPRAZOLE 40 MG IV IVPush SCH (08:57)
[2018-09-01] MEDS: NYSTATIN CRM 15GM TP SCH (08:58)
[2018-09-01] MEDS: SILVER SULF. CRM 1% , 25GM TP SCH (08:58)
[2018-09-01] MEDS ORDERED: DEXMEDETOMIDINE 1,000 MCG in SODIUM CHLORIDE 0.9% 240 ML IV PRN (09:30)
[2018-09-01] MEDS ORDERED: ALBUMIN HUMAN 25% 100 ML IV ONE (09:30)
[2018-09-01] MEDS: BUDESONIDE 0.5 MG/2 ML INHA INH SCH (09:57)
[2018-09-01] MEDS ORDERED: FUROSEMIDE 40 MG/4 ML IV ONE (10:00)
[2018-09-01] MEDS ORDERED: morphine SULFATE 10 MG/ML, 1ML IVPush PRN (13:00)
[2018-09-01] MEDS: DEXTROSE 5% IV SCH (14:23)
[2018-09-01] MEDS: MORPHINE SULFATE IV SCH (14:23)
[2018-09-01] MEDS ORDERED: SCOPOLAMINE PATCH, 1.5MG PATCH.TD72 TD PRN (17:30)
[2018-09-01] MEDS: LORazepam 2 MG/ML, 1ML IVPush PRN ×2 (18:05→23:04)
[2018-09-02] MEDS: LORazepam 2 MG/ML, 1ML IVPush PRN (00:36)
[2018-09-02] MEDS: ATROPINE OPHTH SOLN 1%, 2ML BC PRN ×2 (00:37→05:29)
[2018-09-02] MEDS: MORPHINE SULFATE IV SCH (05:29)
[2018-09-02] MEDS: DEXTROSE 5% IV SCH (05:29)
== END 2018-09-02 13:00 | disposition expired | DRG 870 ==
LOC: ED 19:20 → EDIP 19:25 → CCU 19:56 → ICU 08-28 17:20 → 3NW 09-01 15:25
PROVIDERS: ADMIT Hospitalist; ATTEND Hospitalist
PROC: 0BH17EZ Insertion of Endotracheal Airway into Trachea, Via Natural or Artificial Opening (ICD-10-PCS; principal; 2018-08-21)
PROC: 5A1955Z Respiratory Ventilation, Greater than 96 Consecutive Hours (ICD-10-PCS; 2018-08-21)
DX: A41.51 Sepsis due to Escherichia coli [E. coli] (principal); G93.41 Metabolic encephalopathy; J96.01 Acute respiratory failure with hypoxia; N17.0 Acute kidney failure with tubular necrosis; J69.0 Pneumonitis due to inhalation of food and vomit; E15 Nondiabetic hypoglycemic coma; E87.0 Hyperosmolality and hypernatremia; E87.1 Hypo-osmolality and hyponatremia; I13.0 Hypertensive heart and chronic kidney disease with heart failure and stage 1 through stage 4 chronic kidney disease, or unspecified chronic kidney disease; I50.22 Chronic systolic (congestive) heart failure; N39.0 Urinary tract infection, site not specified; Z99.11 Dependence on respirator [ventilator] status; Z88.0 Allergy status to penicillin; Z88.8 Allergy status to other drugs, medicaments and biological substances; E11.22 Type 2 diabetes mellitus with diabetic chronic kidney disease; E11.649 Type 2 diabetes mellitus with hypoglycemia without coma; E11.65 Type 2 diabetes mellitus with hyperglycemia; G47.33 Obstructive sleep apnea (adult) (pediatric); H70.93 Unspecified mastoiditis, bilateral; I25.5 Ischemic cardiomyopathy; I48.91 Unspecified atrial fibrillation; N18.9 Chronic kidney disease, unspecified; R32 Unspecified urinary incontinence; W18.39XA Other fall on same level, initial encounter; Y93.89 Activity, other specified; Y92.89 Other specified places as the place of occurrence of the external cause; Y99.8 Other external cause status; S00.03XA Contusion of scalp, initial encounter; Z16.12 Extended spectrum beta lactamase (ESBL) resistance; Z51.5 Encounter for palliative care; Z59.0 Homelessness; Z89.511 Acquired absence of right leg below knee; Z89.612 Acquired absence of left leg above knee; Z91.19 Patient's noncompliance with other medical treatment and regimen; J44.9 Chronic obstructive pulmonary disease, unspecified; Z66 Do not resuscitate
CPT/HCPCS: 36415; 36600; 87400; 99285; J3490; J7042; J7620; J7626; 70450; 70551; 71045; 76770; 80048; 80053; 80307; 81001; 82140; 82436; 82533; 82550; 82570; 82607; 82803; 82947; 82962; 83036; 83605; 83735; 84100; 84133; 84300; 84439; 84443; 84478; 84484; 85025; 85610; 85730; 86022; 87040; 87070; 87077; 87081; 87086; 87184; 87186; 87205; 93005; 94002; 94003; 94640; 95819; 96374; 96375; C8929; G0378; J1335; J1644; J1940; J1953; J2185; J2543; J2704; J3010; J3370; J3411; J7070; P9047; Q9957; C9113; J0360; J1815; J2060; J2270; J2920; J2930; J3475; J7030; J7040; J7050